=== PATIENT | male | born 1955 | race Caucasian/White ===

== ENCOUNTER 2019-03-06 12:58 | Emergency (ER) | payer SELFPAY ==
[~2019-03-06] VITALS: Ht 170.2 cm; Wt 72.6 kg
[2019-03-06] MEDS ORDERED: IV NORMAL SALINE 1000ML BAG 1,000 ML IV ONE (13:15)
--- NOTE | 2019-03-06 13:21 | PHYS DOC ---
Past Medical History Past Medical History: No Pertinent History Past Surgical History: Other Additional Past Surgical Histo: R pointer finger Alcohol Use: Heavy Additional Information: "I drink vodka. I have had a couple ounces today" Drug Use: None Adult General Chief Complaint Chief Complaint: WEAKNESS/GENERALIZED HPI HPI 63-year-old male presents to ER via EMS for complaints of weakness and multiple recent falls. Patient reports he lives at home alone and has been having frequent falls. Patient states he fell today due to his legs becoming weak and states he did not hit his head. Patient is denying any head or neck pain. 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 Patient states he is a heavy alcohol drinker daily. Patient states he has drank vodka today reporting 2 ounces is all he has had. Patient is denying any chest pain or palpitations. Pt reports he has had decreased appetite denies any nausea or vomiting. Review of Systems Review of Systems Constitutional: Denies fever or chills. Reports fatigue/weakness Eyes: Denies change in visual acuity, redness, or eye pain [] HENT: Denies nasal congestion or sore throat [] Respiratory: Denies cough or shortness of breath [] Cardiovascular: Denies CP/palpitations GI: Denies abdominal pain, nausea, vomiting, bloody stools or diarrhea [] : Denies dysuria or hematuria [] Musculoskeletal: Denies back/neck pain or joint pain [] Integument: Denies rash or skin lesions. Reports multiple bruises on arms from falls- denies open wounds Neurologic: Denies headache, focal weakness or sensory changes [] Endocrine: Denies polyuria or polydipsia [] All other systems were reviewed and found to be within normal limits, except as documented in this note. Current Medications Current Medications Current Medications Medications (Trade) Dose Ordered Sig/Eh Start Time Stop Time Status Last Admin Dose Admin Lorazepam (Ativan) 1 mg 1X ONCE 03/06/19 15:00 03/06/19 15:01 DC 03/06/19 15:23 1 MG Ondansetron HCl (Zofran) 4 mg 1X ONCE 03/06/19 15:00 03/06/19 15:01 DC 03/06/19 15:23 4 MG Sodium Chloride 500 ml @ 500 mls/hr 1X ONCE 03/06/19 16:00 03/06/19 16:59 DC 03/06/19 16:17 500 MLS/HR Allergies Allergies Allergies Coded Allergies Type Severity Reaction Last Updated Verified No Known Drug Allergies 03/06/19 No Physical Exam Physical Exam Constitutional: Well developed, well nourished, no acute distress, non-toxic appearance. Clear speech HENT: Normocephalic, atraumatic, bilateral ears normal,mucous membranes pink/dry- alcohol odor on breath, no oral exudates, nose normal. [] Eyes: 3mm PERRLA, EOMI- no pain with eye movements, no nystagmus, conjunctiva normal, no discharge. [] Neck: Normal range of motion, no tenderness mid line cspine or palp. deformity /crepitus, supple, no stridor/gross adenopathy Cardiovascular: Heart rate regular rhythm, no murmur [] Lungs & Thorax: Bilateral breath sounds clear to auscultation- resp. equal/nonlabored. No chest wall tenderness or visible injury Abdomen: Bowel sounds normal, soft, no tenderness/distention, no masses, no pulsatile masses. [] Skin: Warm, dry, no erythema, no rash. [] Back: No tenderness mid line spine or palp. deformity, no CVA tenderness. [] Extremities: Pelvis stable/nontender. No tenderness, no cyanosis, no clubbing, no edema. 2+ bilat. radial. 2+ bilat. dorsalis pedis/posterior tibial. Multiple bruises on upper extremities- no tenderness/swelling at site. Full ROM all extremities with no deformity/pain with movements Neurologic: Alert and oriented X 3, normal motor function, normal sensory function, no focal deficits noted. [] Psychologic: Affect normal, judgement normal, mood normal- cooperative. [] Current Patient Data Vital Signs Vital Signs Date Time Temp Pulse Resp B/P (MAP) Pulse Ox O2 Delivery O2 Flow Rate FiO2 03/06/19 16:30 92 16 95 03/06/19 13:00 98.1 157/89 (111) Room Air 98.1 Lab Values Laboratory Tests Test 03/06/19 13:03 03/06/19 14:34 03/06/19 17:06 White Blood Count 3.8 x10^3/uL (4.0-11.0) L Red Blood Count 3.30 x10^6/uL (4.30-5.70) L Hemoglobin 11.3 g/dL (13.0-17.5) L Hematocrit 33.8 % (39.0-53.0) L Mean Corpuscular Volume 102 fL (79-100) H Mean Corpuscular Hemoglobin 34 pg (25-35) Mean Corpuscular Hemoglobin Concent 33 g/dL (31-37) Red Cell Distribution Width 16.5 % (11.5-14.5) H Platelet Count 86 x10^3/uL (140-400) L Neutrophils (%) (Auto) 61 % (31-73) Lymphocytes (%) (Auto) 22 % (24-48) L Monocytes (%) (Auto) 16 % (0-9) H Eosinophils (%) (Auto) 1 % (0-3) Basophils (%) (Auto) 1 % (0-3) Neutrophils # (Auto) 2.3 x10^3uL (1.8-7.7) Lymphocytes # (Auto) 0.8 x10^3/uL (1.0-4.8) L Monocytes # (Auto) 0.6 x10^3/uL (0.0-1.1) Eosinophils # (Auto) 0.0 x10^3/uL (0.0-0.7) Basophils # (Auto) 0.0 x10^3/uL (0.0-0.2) Prothrombin Time 13.0 SEC (11.7-14.0) Prothrombin Time INR 1.0 (0.8-1.1) PTT 33 SEC (24-38) Sodium Level 145 mmol/L (136-145) Potassium Level 3.4 mmol/L (3.5-5.1) L Chloride Level 102 mmol/L (98-107) Carbon Dioxide Level 25 mmol/L (21-32) Anion Gap 18 (6-14) H Blood Urea Nitrogen 11 mg/dL (8-26) Creatinine 0.8 mg/dL (0.7-1.3) Estimated GFR (Cockcroft-Gault) 97.0 BUN/Creatinine Ratio 14 (6-20) Glucose Level 98 mg/dL (70-99) Calcium Level 9.1 mg/dL (8.5-10.1) Magnesium Level 2.0 mg/dL (1.8-2.4) Total Bilirubin 1.0 mg/dL (0.2-1.0) Aspartate Amino Transferase (AST) 267 U/L (15-37) H Alanine Aminotransferase (ALT) 79 U/L (16-63) H Alkaline Phosphatase 210 U/L (46-116) H Troponin I Quantitative < 0.017 ng/mL (0.000-0.055) Total Protein 7.5 g/dL (6.4-8.2) Albumin 3.7 g/dL (3.4-5.0) Albumin/Globulin Ratio 1.0 (1.0-1.7) Ethyl Alcohol Level 259 mg/dL (0-10) H 149 mg/dL (0-10) H Urine Collection Type Unknown Urine Color Yellow Urine Clarity Clear Urine pH 5.5 Urine Specific [place] 1.020 Urine Protein 100 mg/dL (NEG-TRACE) Urine Glucose (UA) Negative mg/dL (NEG) Urine Ketones (Stick) >=80 mg/dL (NEG) Urine Blood Trace (NEG) Urine Nitrite Negative (NEG) Urine Bilirubin Negative (NEG) Urine Urobilinogen Dipstick 1.0 mg/dL (0.2 mg/dL) Urine Leukocyte Esterase Negative (NEG) Urine RBC Rare /HPF (0-2) Urine WBC Rare /HPF (0-4) Urine Squamous Epithelial Cells None /LPF Urine Bacteria 0 /HPF (0-FEW) Urine Mucus Mod /LPF Urine Opiates Screen Neg (NEG) Urine Methadone Screen Neg (NEG) Urine Barbiturates Neg (NEG) Urine Phencyclidine Screen Neg (NEG) Urine Amphetamine/Methamphetamine Neg (NEG) Urine Benzodiazepines Screen Neg (NEG) Urine Cocaine Screen Neg (NEG) Urine Cannabinoids Screen Neg (NEG) Urine Ethyl Alcohol Pos (NEG) Laboratory Tests 03/06/19 13:03 Laboratory Tests 03/06/19 13:03 EKG EKG EKG obtained 03/06/19 at [address] Louis Sinus rhythm Rate 81 No STEMI Radiology/Procedures Radiology/Procedures PROCEDURE: CHEST AP ONLY EXAM: Chest, single view. HISTORY: Weakness. COMPARISON: None. FINDINGS: A frontal view of the chest is obtained. There is no infiltrate, pleural effusion or pneumothorax. The heart is normal in size. IMPRESSION: No acute pulmonary finding. Electronically signed by: Samara Francis MD (03/06/2019 1:42 PM) [facility] DICTATED and SIGNED BY: SAMARA FRANCIS MD DATE: 03/06/19 2480 PROCEDURE: CT HEAD AND CERVICAL SPINE WO EXAM: Head and cervical spine CT without contrast. HISTORY: Weakness. Falls.. TECHNIQUE: Computed tomographic images the head and cervical spine were obtained without contrast. *One or more of the following individualized dose reduction techniques were utilized for this examination: 1. Automated exposure control. 2. Adjustment of the mA and/or kV according to patient size. 3. Use of iterative reconstruction technique. COMPARISON: None. FINDINGS: Head: There is no acute or subacute hemorrhage. There is no mass effect or midline shift. There is no hydrocephalus. There is cerebral and cerebellar atrophy. There are areas of hypodensity within the cerebral white matter, likely due to chronic small vessel disease. The orbits and visualized paranasal sinuses mastoid air cells are unremarkable. No suspicious calvarial lesion is seen. Cervical spine: There is degenerative endplate remodeling with disc space narrowing and osteophytosis at multiple cervical levels, predominantly C5-C6 and C6-C7. There is multilevel facet arthropathy. There is no fracture. There is no suspicious osseous lesion. At C2-C3, there is endplate remodeling. There is mild bilateral facet arthropathy. There is no stenosis. At C3-C4, there is a disc bulge and endplate osteophytosis. There is mild right and moderate left facet arthropathy. There is left greater than right uncovertebral arthropathy. There is mild right and moderate to severe left foraminal stenosis. At C4-C5, there is a disc bulge and endplate osteophytosis. There is mild bilateral facet arthropathy. There is left greater than right uncovertebral arthropathy. There is moderate right and severe left foraminal stenosis. At C5-C6, there is a disc bulge and endplate osteophytosis. There is moderate left and mild right facet arthropathy. There is uncovertebral arthropathy. There is moderate bilateral foraminal stenosis. At C6-C7, there is endplate remodeling. There is no stenosis. IMPRESSION: 1. No acute intracranial finding or evidence of acute cervical spine trauma. 2. Decreased attenuation within the cerebral white matter, likely due to chronic small vessel disease. 3. Cerebral and cerebellar atrophy. 4. Multilevel degenerative change involving the cervical spine, described in detail above. Electronically signed by: Samara Francis MD (03/06/2019 2:02 PM) [facility] DICTATED and SIGNED BY: SAMARA FRANCIS MD DATE: 03/06/19 1401 Course & Med Decision Making Course & Med Decision Making Pertinent Labs and Imaging studies reviewed. (See chart for details) 1450: Pt was evaluated in the ER for complaints of weakness and reported he is a heavy daily vodka drinker. Patient's alcohol was 250s. His time patient appears quite shaky and is tearful. He is denying any suicidal ideations. He does not appear anxious or restless. Discussed test results with patient and with his shakiness and weakness complaints discussed admission for further monitoring and care. CT head/cspine and chest xray with no acute findings. EKG with no acute ST elevation/STEMI and troponin neg. UA >80 ketones- IV flds were given along with PO fluids/food tray. LFTs elevated- this was discussed with etoh abuse. Patient is not wanting to be admitted and states he is wanting to check himself out of the ER. Patient during this discussion states he is nauseated. Will provide patient with dose of Zofran and some food and then reevaluate. 1740: Patient was provided with IV fluids and dose of Ativan for shakes. Patient had improved shakes but was unsteady on his feet. Admission was discussed as patient was unsteady and alcohol was 249 on initial labs. Patient is alert and oriented with no focal neuro deficits. Patient was adamant on being discharged home as he did not want to be admitted. Patient states he could have his cousin stay with him. Discussed additional PO fluids/snacks and having his alcohol level rechecked- he is agreeable with this plan. Recheck of alcohol level was 149. In-depth conversation had with patient regarding fall risk, alcohol cessation, and increasing his hydration without alcohol at home. Patient has denied ever having episodes of seizures when he stopped drinking in the past. Again discussed pt having his cousin or other family member stay with him tonight. Pt states he will call them when he gets home. Pt is in no distress at time of discussion- A&Ox3 and is requesting d/c home so discharge instructions were discussed with pt strongly advised to avoid alcohol and seek outpt detox program. Will provide info with d/c paperwork on community detox facility/program. Education provided on s&s to return to ER for. Edgar Disclaimer Edgar Disclaimer This electronic medical record was generated, in whole or in part, using a voice recognition dictation system. Departure Departure Impression: Primary Impression: Alcohol abuse Additional Impression: Weakness Disposition: 01 HOME, SELF-CARE Condition: STABLE Patient Instructions: Alcohol Problems, Fall Prevention and Home Safety, Weakness Additional Instructions: It is important for you not to drink alcohol. Drink plenty of water and eat well balanced meals. There are multiple alcohol programs to assist you with detoxification. Follow-up with your doctor for re-evaluation this week. Problem Qualifiers LEEANN MATTHEWS APRN March 06, 2019 13:21
[2019-03-06 13:24] LABS: BASO % 1 % (0-3); EOS % 1 % (0-3); HEMATOCRIT 33.8 % (39.0-53.0); HEMOGLOBIN 11.3 g/dL (13.0-17.5); LYMPH # 0.8 x10^3/uL (1.0-4.8); LYMPH % 22 % (24-48); MEAN CORPUSCULAR HEMOGLOBIN 34 pg (25-35); MEAN CORPUSCULAR HGB CONC 33 g/dL (31-37); MEAN CORPUSCULAR VOLUME 102 fL (79-100); MONO # 0.6 x10^3/uL (0.0-1.1); MONO % 16 % (0-9); NEUT # 2.3 x10^3uL (1.8-7.7); NEUT % 61 % (31-73); PLATELET COUNT 86 x10^3/uL (140-400); RED CELL DISTRIBUTION WIDTH 16.5 % (11.5-14.5); WHITE BLOOD COUNT 3.8 x10^3/uL (4.0-11.0)
[2019-03-06 13:42] LABS: CALCIUM 9.1 mg/dL (8.5-10.1); CREATININE 0.8 mg/dL (0.7-1.3); POTASSIUM 3.4 mmol/L (3.5-5.1)
[2019-03-06 13:45] LABS: ALBUMIN 3.7 g/dL (3.4-5.0); TOTAL PROTEIN 7.5 g/dL (6.4-8.2)
--- NOTE | 2019-03-06 13:45 | RAD ---
EXAM: Chest, single view. HISTORY: Weakness. COMPARISON: None. FINDINGS: A frontal view of the chest is obtained. There is no infiltrate, pleural effusion or pneumothorax. The heart is normal in size. IMPRESSION: No acute pulmonary finding. Electronically signed by: Samara Francis MD (03/06/2019 1:42 PM) [facility]
--- NOTE | 2019-03-06 14:05 | RAD ---
EXAM: Head and cervical spine CT without contrast. HISTORY: Weakness. Falls.. TECHNIQUE: Computed tomographic images the head and cervical spine were obtained without contrast. *One or more of the following individualized dose reduction techniques were utilized for this examination: 1. Automated exposure control. 2. Adjustment of the mA and/or kV according to patient size. 3. Use of iterative reconstruction technique. COMPARISON: None. FINDINGS: Head: There is no acute or subacute hemorrhage. There is no mass effect or midline shift. There is no hydrocephalus. There is cerebral and cerebellar atrophy. There are areas of hypodensity within the cerebral white matter, likely due to chronic small vessel disease. The orbits and visualized paranasal sinuses mastoid air cells are unremarkable. No suspicious calvarial lesion is seen. Cervical spine: There is degenerative endplate remodeling with disc space narrowing and osteophytosis at multiple cervical levels, predominantly C5-C6 and C6-C7. There is multilevel facet arthropathy. There is no fracture. There is no suspicious osseous lesion. At C2-C3, there is endplate remodeling. There is mild bilateral facet arthropathy. There is no stenosis. At C3-C4, there is a disc bulge and endplate osteophytosis. There is mild right and moderate left facet arthropathy. There is left greater than right uncovertebral arthropathy. There is mild right and moderate to severe left foraminal stenosis. At C4-C5, there is a disc bulge and endplate osteophytosis. There is mild bilateral facet arthropathy. There is left greater than right uncovertebral arthropathy. There is moderate right and severe left foraminal stenosis. At C5-C6, there is a disc bulge and endplate osteophytosis. There is moderate left and mild right facet arthropathy. There is uncovertebral arthropathy. There is moderate bilateral foraminal stenosis. At C6-C7, there is endplate remodeling. There is no stenosis. IMPRESSION: 1. No acute intracranial finding or evidence of acute cervical spine trauma. 2. Decreased attenuation within the cerebral white matter, likely due to chronic small vessel disease. 3. Cerebral and cerebellar atrophy. 4. Multilevel degenerative change involving the cervical spine, described in detail above. Electronically signed by: Samara Francis MD (03/06/2019 2:02 PM) [facility]
[2019-03-06 14:43] LABS: BILIRUBIN,URINE NEGATIVE (NEG); CLARITY,URINE CLEAR; COLOR,URINE YELLOW; NITRITE,URINE NEGATIVE (NEG); PH,URINE 5.5; PROTEIN,URINE 100 mg/dL (NEG-TRACE)
[2019-03-06 14:51] LABS: BACTERIA,URINE 0 /HPF (0-FEW); BARBITURATES NEG (NEG); BENZODIAZEPINES NEG (NEG); CANNABINOIDS NEG (NEG); COCAINE NEG (NEG); METHADONE NEG (NEG); OPIATES NEG (NEG); PHENCYCLIDINE NEG (NEG); RBC,URINE RARE /HPF (0-2); WBC,URINE RARE /HPF (0-4)
[2019-03-06 14:55] LABS: AMPHETAMINE/METHAMPHETAMINE NEG (NEG)
[2019-03-06] MEDS ORDERED: ONDANSETRON PF 4 MG/2 ML VIAL. IV ONE (15:00)
[2019-03-06] MEDS ORDERED: IV NORMAL SALINE 500ML BAG 500 ML IV ONE (16:00)
[2019-03-06 16:30] VITALS: BP 161/89
--- NOTE | 2019-03-07 09:54 | EKG ---
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
== END 2019-03-06 19:24 | disposition home or self-care (01) ==
LOC: ER 12:58
DX: S40.022A Contusion of left upper arm, initial encounter (principal); S40.021A Contusion of right upper arm, initial encounter; R53.1 Weakness; F10.20 Alcohol dependence, uncomplicated; Y90.8 Blood alcohol level of 240 mg/100 ml or more; R63.0 Anorexia; Z91.81 History of falling; W18.39XA Other fall on same level, initial encounter; Y93.89 Activity, other specified; Y92.89 Other specified places as the place of occurrence of the external cause; Y99.8 Other external cause status
CPT/HCPCS: 36415; 70450; 71045; 72125; 80053; 80307; 81001; 83735; 84484; 85025; 85610; 85730; 93005; 96374; 96375; 99285; G0480; J2060; J2405; J7030; J7040